=== PATIENT | male | born 1995 | race Caucasian/White ===

== ENCOUNTER → 2016-08-16 | Outpatient (CLI) | payer BC ==
[~2016-08-16] MED LIST: FEXO3TAB PO; GUAI100L PO; ZTHM250 PO
--- NOTE | 2016-08-16 15:29 | DIAGNOSTIC IMAGING REPORT ---
[facility]UB CLINICAL HISTORY: Nephrolithiasis. Right-sided pain. COMPARISON STUDY: Renal ultrasound July 16, 2014. FINDINGS: The bowel gas pattern is normal. No urinary calculi are identified on this examination. IMPRESSION: 1. No urinary calculi identified by radiography. 2. No evidence for a bowel obstruction. Electronically signed by: Kodi Strong M.D. 08/16/2016 3:27 PM Dictated Date/Time: 08/16/2016 3:25 PM
== END | disposition home or self-care (01) ==
LOC: C.RAD 15:13
PROVIDERS: ATTEND Urology
DX: N20.0 Calculus of kidney (principal)